=== PATIENT | female | born 1985 | race Caucasian/White ===

== ENCOUNTER 2019-01-09 03:20 | Emergency (ER) | payer OTHER ==
[2019-01-09] MEDS: LIDOCAINE 2% (MDV) 20 ML INJ INJ (04:45)
[2019-01-09] MEDS: KETOROLAC 30 MG INJ IM (04:49)
== END 2019-01-09 05:35 | disposition home or self-care (01) ==
LOC: FTE 03:20
DX: L02.415 Cutaneous abscess of right lower limb (principal); F17.210 Nicotine dependence, cigarettes, uncomplicated
CPT/HCPCS: 10060; 81025; 96372; 99284-25